=== PATIENT | female | born 1965 | race Asian ===

== ENCOUNTER 2019-01-23 00:24 | Emergency (ER) | payer OTHER ==
[~2019-01-23] VITALS: Ht 152.4 cm; Wt 61.2 kg
[2019-01-23 00:32] VITALS: BP 156/98
--- NOTE | 2019-01-23 00:32 | NUR ---
ED Nurse Note: Patient presents with scratch at right AC d/t patient interactions. wound is a superficial abrasion with no active bleeding.
[2019-01-23] MEDS ORDERED: Tetanus/Diptheria/Pertussis Vaccine 0.5ml Syr IM ONE ×2 (00:45→00:57)
[2019-01-23] MEDS ORDERED: Bacitracin Oint UD TOPIC ONE (00:45)
[2019-01-23] MEDS ORDERED: BACITRACIN15 GM TOPIC (01:07)
[2019-01-23 01:11] VITALS: BP 156/98
--- NOTE | 2019-01-23 01:11 | NUR ---
ED Nurse Note: Patient cleared for discharge, no s/s of acute distress. patient ID band removed. Patient verbalized understanding of discharge instructions. Patient departed with all personal belongings.
--- NOTE | 2019-01-23 04:09 | Emergency Room Report ---
History of Present Illness General Chief Complaint: General Complaint Source: Patient Present Illness HPI 53-year-old female presents ED for evaluation. Patient states she sustained a abrasion to her right forearm tonight. 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 Notes burning to the right forearm, throbbing, 6 out of 10, nonradiating. Tetanus is not up-to-date. Denies any other injuries. No active bleeding. No other aggravating relieving factors. Denies any other associated symptoms Allergies: Uncoded Allergies: MORPHINE, VICODIN, DRAGON FRUIT (Allergy, Unknown, 01/23/19) Patient History Past Medical History: none Past Surgical History: none Pertinent Family History: none Social History: Denies: smoking, alcohol use, drug use Now: No Immunizations: UTD Reviewed Nursing Documentation: PMH: Agreed; PSxH: Agreed Nursing Documentation-PMH Past Medical History: No Stated History Review of Systems All Other Systems: negative except mentioned in HPI Physical Exam Vital Signs Date Time Temp Pulse Resp B/P (MAP) Pulse Ox O2 Delivery O2 Flow Rate FiO2 01/23/19 00:32 98.1 84 18 156/98 99 Room Air Sp02 EP Interpretation: reviewed, normal General Appearance: no apparent distress, alert, GCS 15, non-toxic Head: normocephalic Eyes: bilateral eye normal inspection, bilateral eye PERRL ENT: normal ENT inspection Neck: normal inspection Respiratory: normal inspection Cardiovascular #1: normal inspection Gastrointestinal: normal inspection Rectal: deferred Genitourinary: no CVA tenderness Musculoskeletal: normal inspection Neurologic: alert, oriented x3, responsive, motor strength/tone normal, sensory intact, speech normal Psychiatric: normal inspection Skin: abrasions - 3cm abrasion to forearm. no active bleeding. no surrounding erythema/induration Lymphatic: normal inspection Medical Decision Making Diagnostic Impression: Primary Impression: Abrasion of forearm Qualified Codes: S50.811A - Abrasion of right forearm, initial encounter ER Course Hospital Course 53 yo F presents with abrasion to forearm; scratched by patient Clinical course Patient placed on stretcher. After initial history and physical I ordered tetanus shot. The abrasion is superficial and does not require any sutures. No active bleeding. Bacitracin and dressing applied. Safe for discharge with close outpatient follow-up. States she has a PMD Diagnosis - abrasion Stable and discharged to home with prescription for bacitracin. wound Care instructions given. Followup with PMD. Return to ED if any signs of infection develop Last Vital Signs Date Time Temp Pulse Resp B/P (MAP) Pulse Ox O2 Delivery O2 Flow Rate FiO2 01/23/19 01:11 98.1 18 156/98 99 Room Air 01/23/19 00:32 84 Status: improved Disposition: HOME, SELF-CARE Condition: Improved Scripts Bacitracin (Bacitracin) 28.4 Gm Oint...g. 1 APPLIC TOPIC THREE TIMES A DAY, #28.4 GM Prov: Mal Loredo MD 01/23/19 Referrals: NON PHYSICIAN (PCP) Departure Forms: Return to Work Return to Work Date: Jan 24, 2019 Work Restrictions: None Patient Instructions: Abrasion, [id number] Mal Loredo MD Jan 23, 2019 04:09
== END 2019-01-23 01:15 | disposition home or self-care (01) ==
LOC: EMR 00:40
DX: S50.811A Abrasion of right forearm, initial encounter (principal); W50.4XXA Accidental scratch by another person, initial encounter; Y92.239 Unspecified place in hospital as the place of occurrence of the external cause; Y99.0 Civilian activity done for income or pay; Z23 Encounter for immunization
CPT/HCPCS: 90471; 90715; 99282